=== PATIENT | male | born 1990 | race Caucasian/White ===

== ENCOUNTER 2017-03-29 08:26 | Emergency (ER) | payer MEDICAID, OTHER, SELFPAY ==
[~2017-03-29] VITALS: Ht 177.8 cm; Wt 64.5 kg
[2017-03-29 08:26] VITALS: BP 124/79
[2017-03-29] MEDS ORDERED: PRED20TA PO (09:10)
[2017-03-29] MEDS ORDERED: CLOB5CR TOP (09:10)
== END 2017-03-29 09:18 | disposition home or self-care (01) ==
LOC: M ED 08:26
DX: T78.40XA Allergy, unspecified, initial encounter (principal); L29.9 Pruritus, unspecified; Z72.0 Tobacco use

== ENCOUNTER 2017-07-10 18:01 | Emergency (ER) | payer OTHER, MEDICAID | END 2017-07-10 19:47 | disposition home or self-care (01) | LOC: M ED 18:01 | DX: M94.0 Chondrocostal junction syndrome [Tietze] (principal); F17.200 Nicotine dependence, unspecified, uncomplicated; Z98.890 Other specified postprocedural states; Z91.018 Allergy to other foods; Z91.030 Bee allergy status | CPT/HCPCS: 71101 ==

== ENCOUNTER 2018-09-23 03:55 | Emergency (ER) | payer OTHER ==
[~2018-09-23] VITALS: Ht 177.8 cm; Wt 65.9 kg
[~2018-09-23 03:55] MED LIST: CLOB5CR TOP; NAPR-837 PO; PRED20TA PO
[2018-09-23 03:56] VITALS: BP 118/75
== END 2018-09-23 04:54 | disposition left against medical advice (07) ==
LOC: M ED 03:55
DX: Z53.29 Procedure and treatment not carried out because of patient's decision for other reasons (principal)

== ENCOUNTER 2019-08-25 11:35 | Emergency (ER) | payer OTHER ==
[~2019-08-25] VITALS: Ht 177.8 cm; Wt 64.2 kg
[2019-08-25 11:36] VITALS: BP 111/70
[2019-08-25] MEDS ORDERED: CLOT1CRE56 TOP (12:22)
[2019-08-25 12:33] LABS: BASO # 0.1 10^3/uL (0.0-0.2); BASO % 0.5 % (0.0-1.0); EOS # 0.4 10^3/uL (0.0-0.5); EOS % 3.4 % (0.0-3.0); HEMATOCRIT 44.4 % (42.0-52.0); HEMOGLOBIN 15.5 g/dl (13.5-17.5); LYMPH # 2.1 10^3/uL (1.5-5.0); LYMPH % 20.5 % (24.0-44.0); MEAN CORPUSCULAR HEMOGLOBIN 31.3 pg (27.0-33.0); MEAN CORPUSCULAR HGB CONC 34.9 g/dl (32.0-36.5); MEAN CORPUSCULAR VOLUME 89.5 fl (80.0-96.0); MONO # 0.7 10^3/uL (0.0-0.8); MONO % 6.4 % (0.0-5.0); NEUTROPHILS # 7.1 10^3/uL (1.5-8.5); NEUTROPHILS % 68.9 % (36.0-66.0); PLATELET COUNT, AUTOMATED 274 10^3/uL (150-450); RED BLOOD COUNT 4.96 10^6/uL (4.30-6.10); WHITE BLOOD COUNT 10.2 10^3/uL (4.0-10.0)
[2019-08-25 13:07] LABS: ALBUMIN 4.5 GM/DL (3.2-5.2); ALT/SGPT 28 U/L (12-78); BILIRUBIN,DIRECT 0.1 MG/DL (0.0-0.2); BILIRUBIN,TOTAL 0.5 MG/DL (0.2-1.0); BLOOD UREA NITROGEN 9 MG/DL (7-18); CALCIUM LEVEL 8.9 MG/DL (8.5-10.1); CARBON DIOXIDE LEVEL 28 MEQ/L (21-32); CHLORIDE LEVEL 106 MEQ/L (98-107); CREATININE FOR GFR 0.87 MG/DL (0.70-1.30); GLOMERULAR FILTRATION RATE > 60.0 (>60); GLUCOSE, FASTING 87 MG/DL (70-100); POTASSIUM SERUM 3.8 MEQ/L (3.5-5.1); SODIUM LEVEL 139 MEQ/L (136-145); TOTAL PROTEIN 7.4 GM/DL (6.4-8.2)
== END 2019-08-25 12:48 | disposition home or self-care (01) ==
LOC: M ED 11:35
DX: L29.9 Pruritus, unspecified (principal); B35.4 Tinea corporis; B35.6 Tinea cruris; D50.9 Iron deficiency anemia, unspecified; Z79.899 Other long term (current) drug therapy; F17.210 Nicotine dependence, cigarettes, uncomplicated; F12.20 Cannabis dependence, uncomplicated

== ENCOUNTER 2019-08-28 20:38 | Emergency (ER) | payer OTHER ==
[~2019-08-28] VITALS: Ht 177.8 cm; Wt 64.0 kg
[~2019-08-28 20:38] MED LIST changes: +CLOT1CRE56 TOP
[2019-08-28 20:39] VITALS: BP 115/71
[2019-08-28] MEDS ORDERED: TERB250T12 PO (21:09)
== END 2019-08-28 21:17 | disposition home or self-care (01) ==
LOC: M ED 20:38
DX: B35.4 Tinea corporis (principal); F17.200 Nicotine dependence, unspecified, uncomplicated; Z87.2 Personal history of diseases of the skin and subcutaneous tissue; Z91.030 Bee allergy status; Z91.018 Allergy to other foods

== ENCOUNTER 2020-02-18 16:35 | Emergency (ER) | payer OTHER ==
[~2020-02-18 16:35] MED LIST changes: +TERB250T12 PO
[2020-02-18 17:55] LABS: HEMATOCRIT 41.8 % (42.0-52.0); HEMOGLOBIN 13.9 g/dl (13.5-17.5); MEAN CORPUSCULAR HEMOGLOBIN 30.3 pg (27.0-33.0); MEAN CORPUSCULAR HGB CONC 33.3 g/dl (32.0-36.5); MEAN CORPUSCULAR VOLUME 91.3 fl (80.0-96.0); PLATELET COUNT, AUTOMATED 299 10^3/uL (150-450); RED BLOOD COUNT 4.58 10^6/uL (4.30-6.10); WHITE BLOOD COUNT 11.3 10^3/uL (4.0-10.0)
[2020-02-18 18:31] LABS: ACETAMINOPHEN LEVEL < 2.0 UG/ML (10.0-30.0); ALBUMIN 4.3 GM/DL (3.2-5.2); ALT/SGPT 22 U/L (12-78); BILIRUBIN,DIRECT < 0.1 MG/DL (0.0-0.2); BILIRUBIN,TOTAL 0.3 MG/DL (0.2-1.0); BLOOD UREA NITROGEN 9 MG/DL (7-18); CALCIUM LEVEL 9.1 MG/DL (8.5-10.1); CARBON DIOXIDE LEVEL 27 MEQ/L (21-32); CHLORIDE LEVEL 109 MEQ/L (98-107); CREATININE FOR GFR 0.82 MG/DL (0.70-1.30); ETHYL ALCOHOL (ETHANOL) 0.074 % (0.000-0.010); GLOMERULAR FILTRATION RATE > 60.0 (>60); GLUCOSE, FASTING 88 MG/DL (70-100); POTASSIUM SERUM 4.1 MEQ/L (3.5-5.1); SODIUM LEVEL 141 MEQ/L (136-145); TOTAL PROTEIN 7.2 GM/DL (6.4-8.2)
[2020-02-18 20:01] VITALS: BP 127/77
[2020-02-18 20:16] LABS: AMPHETAMINES LEVEL URINE NEGATIVE (NEGATIVE); BARBITURATES URINE NEGATIVE (NEGATIVE); BENZODIAZEPINES URINE NEGATIVE (NEGATIVE); CANNABINOIDS URINE POSITIVE (NEGATIVE); COCAINE METABOLITE URINE NEGATIVE (NEGATIVE); METHADONE URINE NEGATIVE (NEGATIVE); OPIATES URINE NEGATIVE (NEGATIVE); PHENCYCLIDINE URINE NEGATIVE (NEGATIVE)
== END 2020-02-18 20:03 | disposition home or self-care (01) ==
LOC: M ED 16:35
DX: F43.0 Acute stress reaction (principal); F17.210 Nicotine dependence, cigarettes, uncomplicated; F12.20 Cannabis dependence, uncomplicated; Z91.018 Allergy to other foods; Z91.030 Bee allergy status
CPT/HCPCS: 36415; 80048; 80076; 80307; 84443; 85027; 99284; G0480

== ENCOUNTER 2022-05-02 08:36 | Emergency (ER) | payer OTHER ==
[~2022-05-02] VITALS: Ht 177.8 cm; Wt 66.0 kg
[~2022-05-02 08:36] MED LIST changes: -TERB250T12 PO; +TERB250T91 PO
[2022-05-02] MEDS ORDERED: LIDOCAINE 1% SDV 5ML VIAL DILUENT ONE (11:10)
[2022-05-02] MEDS ORDERED: cefTRIAXone 500MG VIAL IM ONE (11:10)
[2022-05-02] MEDS ORDERED: DOXY-443 PO (11:19)
[2022-05-02 11:29] LABS: GC DNA AMPLIFICATION NEGATIVE (NEGATIVE)
[2022-05-02 11:38] VITALS: BP 117/78
== END 2022-05-02 11:50 | disposition home or self-care (01) ==
LOC: M ED 08:36
DX: N34.1 Nonspecific urethritis (principal); Z11.3 Encounter for screening for infections with a predominantly sexual mode of transmission; R10.9 Unspecified abdominal pain; E61.1 Iron deficiency; F17.200 Nicotine dependence, unspecified, uncomplicated; Z91.030 Bee allergy status; Z91.018 Allergy to other foods

== ENCOUNTER 2022-05-27 15:32 | Emergency (ER) | payer OTHER ==
[~2022-05-27] VITALS: Ht 177.8 cm; Wt 65.7 kg
[~2022-05-27 15:32] MED LIST changes: +DOXY-443 PO
[2022-05-27 18:14] VITALS: BP 126/89
== END 2022-05-27 18:54 | disposition home or self-care (01) ==
LOC: M ED 15:32
DX: R20.2 Paresthesia of skin (principal); R59.9 Enlarged lymph nodes, unspecified; F17.200 Nicotine dependence, unspecified, uncomplicated; Z91.030 Bee allergy status; Z91.018 Allergy to other foods

== ENCOUNTER → 2022-10-14 | Outpatient (REF) | payer OTHER ==
[2022-10-14 18:43] LABS: BASO % 0.6 % (0.0-1.0); EOS # 0.1 10^3/uL (0.0-0.5); EOS % 1.8 % (0.0-3.0); HEMATOCRIT 43.9 % (42.0-52.0); HEMOGLOBIN 14.7 g/dl (13.5-17.5); LYMPH # 2.5 10^3/uL (1.5-5.0); LYMPH % 37.8 % (24.0-44.0); MEAN CORPUSCULAR HEMOGLOBIN 30.7 pg (27.0-33.0); MEAN CORPUSCULAR HGB CONC 33.5 g/dl (32.0-36.5); MEAN CORPUSCULAR VOLUME 91.6 fl (80.0-96.0); MONO # 0.5 10^3/uL (0.0-0.8); MONO % 7.6 % (2.0-8.0); NEUTROPHILS # 3.4 10^3/uL (1.5-8.5); PLATELET COUNT, AUTOMATED 272 10^3/uL (150-450); RED BLOOD COUNT 4.79 10^6/uL (4.30-6.10); WHITE BLOOD COUNT 6.5 10^3/uL (4.0-10.0)
[2022-10-14 19:08] LABS: THYROID STIMULATING HORMONE 1.517 uIU/ML (0.55-4.78); TOTAL 25(OH) VITAMIN D 28.8 NG/ML (20.0-100.0)
[2022-10-14 19:10] LABS: ALBUMIN 4.5 G/DL (3.2-5.2); ALKALINE PHOSPHATASE 76 U/L (46-116); ALT/SGPT 10 U/L (7.0-40); AST/SGOT < 8 U/L (<34); BILIRUBIN,TOTAL 0.6 MG/DL (0.3-1.2); BLOOD UREA NITROGEN 7 MG/DL (9-23); CALCIUM LEVEL 9.5 MG/DL (8.5-10.1); CARBON DIOXIDE LEVEL 30 MMOL/L (20-31); CHLORIDE LEVEL 105 MMOL/L (98-107); CHOLESTEROL LEVEL 145 MG/DL (<200); CHOLESTEROL RISK RATIO 3.62 (<5); GLOMERULAR FILTRATION RATE > 60.0 (>60); GLUCOSE, FASTING 77 MG/DL (60-100); SODIUM LEVEL 140 MMOL/L (136-145); TOTAL PROTEIN 6.7 G/DL (5.7-8.2); TRIGLYCERIDES LEVEL 60 MG/DL (<150)
== END ==
LOC: M LAB REF 17:07
PROVIDERS: ATTEND Pediatrics
DX: Z13.220 Encounter for screening for lipoid disorders (principal); E55.9 Vitamin D deficiency, unspecified

== ENCOUNTER 2023-10-25 09:09 | Emergency (ER) | payer MEDICAID, OTHER, SELFPAY ==
[~2023-10-25] VITALS: Ht 177.8 cm; Wt 63.2 kg
[~2023-10-25 09:09] MED LIST changes: +DOXY-323 PO; -DOXY-443 PO
[2023-10-25] MEDS ORDERED: AMOX875T2 PO (12:05)
[2023-10-25 12:15] VITALS: BP 139/72; TEMP 96.6; O2SAT 98
[2023-10-25] MEDS: dexAMETHasone 4 MG TAB PO ONE (12:15)
[2023-10-25] MEDS: AUGMENTIN 875 MG TAB PO ONE (12:15)
== END 2023-10-25 12:15 | disposition home or self-care (01) ==
LOC: M ED 09:09
DX: K02.9 Dental caries, unspecified (principal); F17.210 Nicotine dependence, cigarettes, uncomplicated; Z91.018 Allergy to other foods; Z91.030 Bee allergy status; Z79.2 Long term (current) use of antibiotics

== ENCOUNTER 2024-01-25 14:04 | Emergency (ER) | payer MEDICAID, OTHER, SELFPAY ==
[~2024-01-25] VITALS: Ht 177.8 cm; Wt 64.1 kg
[~2024-01-25 14:04] MED LIST changes: +AMOX875T2 PO; -DOXY-323 PO; +DOXY-441 PO
[2024-01-25 14:14] VITALS: BP 115/71; TEMP 97.3; O2SAT 99
[2024-01-25] MEDS ORDERED: CEPH500C PO (20:08)
[2024-01-25] MEDS ORDERED: PERM5CRE9 TOP (20:08)
[2024-01-25] MEDS: CEPHALEXIN 500 MG CAP PO ONE (20:10)
== END 2024-01-25 20:22 | disposition home or self-care (01) ==
LOC: M ED 14:04
DX: B86 Scabies (principal); L03.113 Cellulitis of right upper limb; L03.114 Cellulitis of left upper limb; F17.210 Nicotine dependence, cigarettes, uncomplicated; F12.10 Cannabis abuse, uncomplicated; Z91.030 Bee allergy status; Z91.048 Other nonmedicinal substance allergy status; Z91.018 Allergy to other foods; Z79.2 Long term (current) use of antibiotics